=== PATIENT | male | born 1950 | race Caucasian/White ===

== ENCOUNTER 2016-07-10 10:36 | Outpatient (CLI) | payer MEDICARE, BC ==
[2014-06-29 13:44] VITALS: BP 134/76
--- NOTE | 2016-07-10 14:34 | Diagnostic Imaging Report ---
SEFERINO CUNHA [facility] [address] [facility] [address] [address] Report Submission Date: Jul 10, 2016 12:04:55 PM CDT Patient Study Name: MARCELINA CHAVEZ Date: Jul 10, 2016 10:47:18 AM CDT Modality Type: CR Gender: M Description: PELVIS : 48 Institution: [facility] Physician: SEFERINO CUNHA Right hip - two views Clinical history: Pain for a couple of months. Findings: Examination of the right hip in AP and frog-leg lateral views demonstrates degenerative changes with narrowing of the joint space superolaterally. A small osteophyte is seen on the acetabulum. There is no evident fracture and no lytic or blastic lesion. Impression: 1. Degenerative changes. 2. No fracture. Electronically signed on Jul 10, 2016 12:04:55 PM CDT by: Yao NEAL
== END 2016-07-10 10:37 ==
LOC: RAD 10:36
PROVIDERS: ATTEND Physician Assistant
DX: M25.551 Pain in right hip (principal)
CPT/HCPCS: 73502

== ENCOUNTER 2016-08-10 09:21 | Outpatient (CLI) | payer MEDICARE, BC ==
[2014-06-29 13:44] VITALS: BP 134/76
== END 2016-08-10 09:22 ==
LOC: LABRHC 09:21
PROVIDERS: ATTEND Family Medicine
DX: N30.00 Acute cystitis without hematuria (principal)
CPT/HCPCS: 87086; 87186

== ENCOUNTER 2017-05-17 12:56 | Outpatient (CLI) | payer MEDICARE, OTHER ==
[2014-06-29 13:44] VITALS: BP 134/76
[2017-05-17 13:10] LABS: APPEARANCE,URINE Cloudy (CLEAR); COLOR,URINE Yellow (YELLOW); OCCULT BLOOD,URINE 2+ (NEGATIVE); PH URINE 5.5 (5.0 - 8.0); UROBILINOGEN URINE 0.2 Eu (0.2-1.0)
== END 2017-05-17 12:58 ==
LOC: LAB 12:56
PROVIDERS: ATTEND Urology
DX: N39.0 Urinary tract infection, site not specified (principal)
CPT/HCPCS: 81002; 87086; 87186

== ENCOUNTER 2017-06-05 07:42 | Emergency (ER) | payer OTHER ==
--- NOTE | 2017-06-05 07:54 | ED Physician Documentation ---
General Adult - HISTORIAN Historian: patient - HPI Chief Complaint: Male Genitourinary Problems Additional Information: 67-year-old white male who states approximately six weeks ago he underwent a TURP procedure. Patient stated he has had some urinary tract infection some time and is finishing up a course of doxycycline. This morning patient stated he felt something pop and then he was having some difficulties with urinating and having pain in the urethra. Patient did notice something white the distal end of his urethra. Patient comes in for evaluation. Patient is not had any hematuria. Patient denies any fever or chills. 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 denies: fever, chills GI/: problems urinating. denies: vomiting, nausea, diarrhea, black stools - PAST HX Past History: hypertension, other (thyroid cancer, BPH) Other History: diabetes Type 2 Surgeries/Procedures: other (thyroidectomy, TURP, skin cancer removed) Allergies/Adverse Reactions: Allergies Allergy/AdvReac Type Severity Reaction Status Date / Time No Known Allergies Allergy Verified 06/05/17 08:26 Home Medications: Ambulatory Orders Medication Instructions Recorded Insulin NPL/Insulin Lispro 11/18/12 [Humalog Mix 75-25 Kwikpen] - SOCIAL HX Smoking History: non-smoker Alcohol Use: none Drug Use: none - FAMILY HX Family History: No - VITAL SIGNS Vital Signs: Vital Signs Temp Pulse Resp BP Pulse Ox 134/76 06/29/14 13:42 - REVIEWED ASSESSMENTS Nursing Assessment Reviewed: Yes Vitals Reviewed: Yes General Adult Physical Exam - PHYSICAL EXAM GENERAL APPEARANCE: mild distress ABDOMEN: soft, no organomegaly, normal bowel sounds, no abdominal bruit, no distension, non-tender BACK: no CVA tenderness SKIN: warm/dry NEURO: oriented X3, mood/affect nml, cognition normal Discharge Clincal Impression: Urethral foreign body Qualifiers: Encounter type: initial encounter Qualified Code(s): T19.0XXA - Foreign body in urethra, initial encounter Referrals: NIC CHU MD [Primary Care Provider] - 2 Days Additional Instructions: Drink lot of fluids. There is a possibility of further mucous/tissue from your prostate procedure that may get caught in the urethra.If you have any further problens to return to the ED or see your urologist. Condition: Stable Disposition: 01 HOME, SELF-CARE Decision to Admit: NO Date of Decison to Admit: 06/05/17 Decision Time: 08:08 Male Genitourinary Problems - EXAM General Appearance: alert, moderate distress Abdomen: non-tender, no organomegaly. No: guarding, rebound Genitals: nml inspection, testicles nml palp., other (Mucous like plug about 2cm long removed from urethra) Respiratory: no resp distress. No: wheezes, rales, rhonchi CVS: reg rate & rhythm, heart sounds normal, no murmur Back: No: CVA tenderness Neuro/Psych: oriented X3, mood/affect nml, cognition normal
[2017-06-05 08:26] VITALS: BP 150/92
[2017-06-05 09:31] LABS: APPEARANCE,URINE CLOUDY (CLEAR); COLOR,URINE BROWN (YELLOW); OCCULT BLOOD,URINE 2+ (NEGATIVE); UROBILINOGEN URINE 0.2 Eu (0.2-1.0)
== END 2017-06-05 08:30 | disposition home or self-care (01) ==
LOC: ED 07:42
DX: T19.0XXA Foreign body in urethra, initial encounter (principal); X58.XXXA Exposure to other specified factors, initial encounter; Y93.9 Activity, unspecified; Y92.9 Unspecified place or not applicable; Y99.9 Unspecified external cause status
CPT/HCPCS: 81002; 87086; 99282; 99283

== ENCOUNTER 2017-06-23 18:54 | Emergency (ER) | payer MEDICARE, OTHER ==
--- NOTE | 2017-06-23 20:00 | ED Physician Documentation ---
Male Genitourinary Problems - HISTORIAN Historian: patient - HPI Stated Complaint: unable to urinate Chief Complaint: Male Urogenital Problems (diffuculties voiding) Additional Information: Patient had prostate TURP done about 2 month ago. Patient was seen about 2 weeks ago and had a foreign body in urethra (felt to be derbis from previous procedure). Patient states that he started to have some urinary difficulties. Feels that there may be a a partial blockage at the end of his penis. Started several days ago Patient was seen by urologist and started on macorbid BID for 14 days. Is currently still taking it. When he came to he ED he states that he was able to urinate OK. Not sure if he is able to empty his bladder out or not. Onset: days ago (3 days ago) Duration: continues in ED, better Severity: mild - Associated Symptoms Problems Urinating: frequent urination, discomfort w/ urination, burning w/ urination Penile Discharge Descripiton: other (none) Testicular Pain: none Testicular Swelling: none Abdominal Pain: none - Sexual History Sexual History: non-contributory - ROS CONST: none. denies: fever, chills GI/: denies: nausea, vomiting - PAST HX Past History: enlarged prostate, diabetes Type 2, other (secondary hypothyroidism, thyroid cancer) Surgeries/Procedures: TURP, other (thyroidectomy) Immunizations: influenza, referred to PCP Allergies/Adverse Reactions: Allergies Allergy/AdvReac Type Severity Reaction Status Date / Time No Known Allergies Allergy Verified 06/23/17 20:44 Home Medications: Ambulatory Orders Medication Instructions Recorded Insulin NPL/Insulin Lispro 1 unit SQ DIRECTED 11/18/12 [Humalog Mix 75-25 Kwikpen] Atorvastatin Calcium [Atorvastatin 10 mg PO HS 06/23/17 Calcium] Latanoprost [Xalatan] 1 drop EACHEYE DIRECTED 06/23/17 Levothyroxine Sodium [Synthroid] 150 mcg PO D 06/23/17 Lisinopril [Zestril] 10 mg PO D 06/23/17 Montelukast Sodium [Singulair] 10 mg PO D 06/23/17 - SOCIAL HX Smoking History: non-smoker Alcohol Use: none Drug Use: none - FAMILY HX Family History: none - VITAL SIGNS Vital Signs: Vital Signs Temp Pulse Resp BP Pulse Ox 98.9 F 94 H 16 135/72 98 06/23/17 18:55 06/23/17 23:08 06/23/17 23:08 06/23/17 23:08 06/23/17 23:08 - REVIEWED ASSESSMENTS Nursing Assessment Reviewed: Yes Vitals Reviewed: Yes ED Results Lab/Radiology - Radiology Radiology Impressions: Abdomen series with single view chest History: Right flank pain, bloating, constipation Findings: A calcified left lung granuloma is present. The lungs are otherwise clear. Heart size and pulmonary vascularity are normal. Upright and supine abdomen radiographs reveal a moderate amount of right colonic stool. The bowel gas pattern is otherwise normal without significant constipation, bowel obstruction, or free air. Lower lumbar spondylosis is observed. Impression: Moderate right colonic stool and lumbar spondylosis. - Orders Orders: ED Orders Category Date Time Status ABD SERIES [ABD SERIES PA CHEST] [RAD] Stat Exams 06/23/17 Ordered URINALYSIS Routine Lab 06/23/17 20:11 Ordered URINE CULTURE Routine Lab 06/23/17 20:10 Ordered Male Genitourinary Problems - EXAM General Appearance: alert, mild distress Abdomen: tenderness (mild suprapubic) Genitals: nml inspection. No: urethral discharge, testicular tenderness, epididymal tenderness Respiratory: no resp distress, chest non-tender, breath sounds normal. No: wheezes, rales, rhonchi CVS: reg rate & rhythm, heart sounds normal, equal pulses, no murmur, no gallop Back: other (mild right flank tenderness to palpation) Extremities: no pedal edema Neuro/Psych: oriented X3, mood/affect nml, cognition normal Skin: warm/dry, normal color Discharge Clincal Impression: Voiding difficulty Referrals: NIC CHU MD [Primary Care Provider] - 2 Days Additional Instructions: Drink a lot of fluids. If you have any further difficulties to return to the ED or your urologist. Continue taking MacroBid until finished. Condition: Stable Disposition: 01 HOME, SELF-CARE Decision to Admit: NO Date of Decison to Admit: 06/23/17 Decision Time: 22:10
[2017-06-23 23:11] VITALS: BP 135/72
--- NOTE | 2017-06-24 02:03 | Diagnostic Imaging Report ---
[facility] [address] [facility].[address] [address] Report Submission Date: Jun 23, 2017 10:13:00 PM CDT Patient Study Name: MARCELINA CHAVEZ Date: Jun 23, 2017 8:41:22 PM CDT Modality Type: DX Gender: M Description: CHEST,ABDOMEN : 48 Institution: [facility] Physician: PURNIMA MASON Abdomen series with single view chest History: Right flank pain, bloating, constipation Findings: A calcified left lung granuloma is present. The lungs are otherwise clear. Heart size and pulmonary vascularity are normal. Upright and supine abdomen radiographs reveal a moderate amount of right colonic stool. The bowel gas pattern is otherwise normal without significant constipation, bowel obstruction, or free air. Lower lumbar spondylosis is observed. Impression: Moderate right colonic stool and lumbar spondylosis. Electronically signed on Jun 23, 2017 10:13:00 PM CDT by: Jeffery NEAL
[2017-06-24 07:01] LABS: APPEARANCE,URINE CLOUDY (CLEAR); COLOR,URINE YELLOW (YELLOW); OCCULT BLOOD,URINE 2+ (NEGATIVE); UROBILINOGEN URINE 0.2 Eu (0.2-1.0)
== END 2017-06-23 22:40 | disposition home or self-care (01) ==
LOC: ED 18:54
DX: R33.9 Retention of urine, unspecified (principal); R30.0 Dysuria
CPT/HCPCS: 74022; 81002; 87086; 99282; 99283

== ENCOUNTER 2018-05-10 14:09 | Outpatient (CLI) | payer MEDICARE, BC | END 2018-05-10 14:15 | LOC: LABRHC 14:09 | PROVIDERS: ATTEND Family Medicine | DX: Z53.9 Procedure and treatment not carried out, unspecified reason (principal) ==

== ENCOUNTER 2019-03-11 10:45 | Emergency (ER) | payer BC, MEDICARE ==
--- NOTE | 2019-03-11 10:57 | ED Physician Documentation ---
General Adult - HISTORIAN Historian: patient - HPI Stated Complaint: hip pain Chief Complaint: General Adult Onset: days ago Timing: still present Severity: moderate Further Comments: yes (Pt is a 68 yo male with L hip pain x 1 week. Pt has had pain in his lower back. Pt usually walks with a cane, but has been having increased difficulty walking. Pain is worse with turning at waist.) - ROS CONST: no problems EYES/ENT: none CVS/RESP: none GI/: none MS/SKIN/LYMPH: back pain, other (L hip pain) NEURO/PSYCH: denies: tingling - PAST HX Past History: hypertension, other (DM, thyroid d/o, HLD ) Surgeries/Procedures: other (thyroidectomy) Allergies/Adverse Reactions: Allergies Allergy/AdvReac Type Severity Reaction Status Date / Time No Known Allergies Allergy Verified 03/11/19 11:21 Home Medications: Ambulatory Orders Medication Instructions Recorded Atorvastatin Calcium 10 mg PO HS 06/23/17 Latanoprost [Xalatan] 1 drop EACHEYE DIRECTED 06/23/17 Levothyroxine Sodium [Synthroid] 175 mcg PO D 06/23/17 Lisinopril [Zestril] 10 mg PO D 06/23/17 Montelukast Sodium [Singulair] 10 mg PO D 06/23/17 Empagliflozin [Jardiance] 25 mg PO DAILY 03/11/19 Metformin HCl 1,000 mg PO BID 03/11/19 - SOCIAL HX Smoking History: non-smoker - FAMILY HX Family History: No - VITAL SIGNS Vital Signs: Vital Signs Temp Pulse Resp BP Pulse Ox 135/72 06/23/17 23:08 - REVIEWED ASSESSMENTS Nursing Assessment Reviewed: Yes Vitals Reviewed: Yes Progress - Progress Progress: Exam: CT lumbar spine. History: Low back pain. Axial images through the lumbar spine are submitted along with sagittal and coronal reformatted images. In the sagittal images the vertebral body heights are adequately maintained. Endplate sclerosis and spurring throughout the lumbar spine is noted. No spondylolisthesis is identified. In the coronal images mild levoscoliosis is identified. In the axial images no acute fracture is identified. Diffuse bulging discs with facet joint hypertrophy creates canal stenosis at L4-5 level with encroachment on both intervertebral foramen. Facet joint hypertrophy and bulging discs also encroaches on the intervertebral foramina bilaterally at L5-S1 level. Impression: Diffuse bulging discs with facet joint hypertrophy creates canal stenosis at L4- 5 level with encroachment on both intervertebral foramen. Bulging discs with facet joint hypertrophy encroaches on both intervertebral foramen at L5-S1 level. No acute fracture is otherwise identified. MRI is recommended to further evaluate. Exam: CT pelvis. History: Left hip pain. Axial images through the pelvis are submitted along with sagittal and coronal reformatted images. No acute fracture or dislocations are identified. Degenerate changes in both hip joints are noted. Narrowing and sclerosis at the right sacroiliac joint is noted. Sclerosis and spurring at both hip joints are noted slightly more prominent on the left as compared to the right. No pelvic masses are identified. The surrounding musculature appears normal in attenuation. Impression: Degenerate changes in both hip joints more so on the left than on the right. Right-sided sacroiliitis. d/w Dr. Antonio. Will arrange MRI and f/u with pt. d/c instructions: Rx [place] (5/325). Take one or two tablets by mouth every 4 to 6 hours as needed for moderate to severe pain. May cause drowsiness. Follow up with MRI imaging study of lower spine. Dr. Antonio's office will call you about appointment time. General Adult Physical Exam - PHYSICAL EXAM GENERAL APPEARANCE: moderate distress NECK: normal inspection, supple RESPIRATORY: no resp distress, chest non-tender, breath sounds normal CVS: reg rate & rhythm, heart sounds normal ABDOMEN: soft, no organomegaly, normal bowel sounds BACK: normal inspection SKIN: warm/dry, normal color EXTREMITIES: other (L hip tenderness; inhibited ROM) NEURO: oriented X3, motor nml, sensation nml Discharge Clincal Impression: L hip pain, back pain, spinal stenosis, bulging disks, DJD b/l hip Referrals: NIC CHU MD [REFERRING] - 2 Days Condition: Stable Disposition: 01 HOME, SELF-CARE Decision to Admit: NO Decision Time: 13:00
--- NOTE | 2019-03-11 12:38 | Diagnostic Imaging Report ---
PATIENT MR#: [id number] PATIENT PATIENT NAME: MARCELINA CHAVEZ DATE OF : 1950 REFERRING PHYSICIAN: Ash Louis EXAM DATE: 03/11/2019 ACCESSION NUMBER: [id number] EXAM DESCRIPTION: CT L-SPINE W/O CONTRAS Exam: CT lumbar spine. History: Low back pain. Axial images through the lumbar spine are submitted along with sagittal and coronal reformatted image s. In the sagittal images the vertebral body heights are adequately maintained. Endplate sclerosis and spurring throughout the lumbar spine is noted. No spondylolisthesis is identified. In the coronal images mild levoscoli osis is identified. In the axial images no acute fracture is identified. Diffuse bulging discs with facet joint hypertro phy creates canal stenosis at L4-5 level with encroachment on both intervertebral foramen. Facet joint hypertrophy and bulging discs also encroaches on the intervertebral foramina bilaterally at L5-S1 level. Impression: Diffuse bulging discs with facet joint hypertrophy creates canal stenosis at L4-5 level with encroach ment on both intervertebral foramen. Bulging discs with facet joint hypertrophy encroaches on both intervertebral foramen at L5-S1 level. No acute fracture is otherwise identified. MRI is recommended to further evaluate. Read by: Dr. John Cabrera Transcribed by: Transcribed Date: Electronically signed by: Dr. John Cabrera Date signed: 03/11/2019 12:38:09 PM
--- NOTE | 2019-03-11 12:41 | Diagnostic Imaging Report ---
PATIENT MR#: [id number] PATIENT PATIENT NAME: MARCELINA CHAVEZ DATE OF : 1950 REFERRING PHYSICIAN: Ash Louis EXAM DATE: 03/11/2019 ACCESSION NUMBER: [id number] EXAM DESCRIPTION: CT PELVIS W/O CONTRAST Exam: CT pelvis. History: Left hip pain. Axial images through the pelvis are submitted along with sagittal and coronal reformatted images. No acute fracture or dislocations are identified. Degenerate changes in both hip joints are noted. Narrowing and sclerosis at the right sacroiliac joint is noted. Sclerosis and spurring at both hip joints are note d slightly more prominent on the left as compared to the right. No pelvic masses are identified. The surrounding mu sculature appears normal in attenuation. Impression: Degenerate changes in both hip joints more so on the left than on the right. Right-sided sacroiliitis. Read by: Dr. John Cabrera Transcribed by: Transcribed Date: Electronically signed by: Dr. John Cabrera Date signed: 03/11/2019 12:40:53 PM
[2019-03-11 13:04] VITALS: BP 123/67
== END 2019-03-11 13:10 | disposition home or self-care (01) ==
LOC: ED 10:45
DX: M16.0 Bilateral primary osteoarthritis of hip (principal); M51.26 Other intervertebral disc displacement, lumbar region; M48.061 Spinal stenosis, lumbar region without neurogenic claudication
CPT/HCPCS: 72131; 72192; 99282; 99283